=== PATIENT | female | born 1995 | race Caucasian/White ===

== ENCOUNTER 2018-10-02 23:31 | Emergency (ER) | payer OTHER ==
[~2018-10-02] VITALS: Ht 167.6 cm; Wt 71.4 kg
[2018-10-03 02:50] VITALS: BP 121/86
[2018-10-03] MEDS ORDERED: IBUPROFEN 600 MG TABLET PO ONE (03:00)
== END 2018-10-03 04:30 | disposition home or self-care (01) ==
LOC: EMS 23:31
DX: S63.502A Unspecified sprain of left wrist, initial encounter (principal); X58.XXXA Exposure to other specified factors, initial encounter; Y93.89 Activity, other specified; Y92.89 Other specified places as the place of occurrence of the external cause; Y99.8 Other external cause status